=== PATIENT | male | born 2000 | race Caucasian/White ===

== ENCOUNTER 2020-05-08 18:35 | Emergency (ER) | payer OTHER ==
[~2020-05-08] VITALS: Ht 162.6 cm; Wt 54.4 kg
[2020-05-08] MEDS ORDERED: SILVADENE20 GM TOP (18:57)
[2020-05-08] MEDS ORDERED: KEFLEX500 M2 PO (18:57)
[2020-05-08 19:02] VITALS: BP 133/80
== END 2020-05-08 19:08 | disposition home or self-care (01) ==
LOC: M.ERS 18:35
DX: T25.221A Burn of second degree of right foot, initial encounter (principal); T31.0 Burns involving less than 10% of body surface; X12.XXXA Contact with other hot fluids, initial encounter; Y93.G3 Activity, cooking and baking; Y92.89 Other specified places as the place of occurrence of the external cause; Y99.8 Other external cause status